=== PATIENT | female | born 1980 | race Hispanic/Latino ===

== ENCOUNTER → 2024-01-03 | Day surgery (SDC) | payer OTHER ==
[~2024-01-03] MED LIST: DEXAMETHASONE SOD PHOS INJ 4 MG/ML SDV ONE; FENTANYL CITRATE/PF 100MCG/2 ML INJ ONE; FEROSUL325 MG PO; HYDROCODONE/APAP 7.5MG-325MG 1 EA TAB ONE; LIDOCAINE HCL 2% LOCAL INJ 5 ML SDV VIAL INJ ONE; MIDAZOLAM HCL 2 MG/2 ML VIAL ONE; ONDANSETRON HCL INJ 2MG/ML 2ML 2 MG/ML VIAL ONE; PROPOFOL IV EMULSION 10 MG/ML 20 ML VIAL ONE; SEVOFLURANE INHAL SOLN 250 ML PEN BTL ONE
[2024-01-03] MEDS: LACTATED RINGER'S 1,000 ML ONE (05:58)
[2024-01-03 07:56] VITALS: TEMP 97.1
[2024-01-03 08:45] VITALS: BP 109/77; PULSE 52; RESP 14; O2SAT 100
== END | disposition home or self-care (01) ==
LOC: OR 05:34
PROVIDERS: ATTEND Specialist
DX: G56.01 Carpal tunnel syndrome, right upper limb (principal); G89.29 Other chronic pain; K58.9 Irritable bowel syndrome, unspecified; D64.9 Anemia, unspecified; D68.9 Coagulation defect, unspecified; K21.9 Gastro-esophageal reflux disease without esophagitis; I83.90 Asymptomatic varicose veins of unspecified lower extremity; Z79.899 Other long term (current) drug therapy
CPT/HCPCS: 29848; 81025; J0690; J1100; J2003; J2250; J2405; J2704; J3010; J7121